=== PATIENT | female | born 1975 | race Caucasian/White ===

== ENCOUNTER 2019-05-07 13:26 | Outpatient (CLI) | payer OTHER, SELFPAY ==
--- NOTE | 2019-05-07 13:28 | MM_ITS ---
WS: [id number] SCREENING DIGITAL MAMMOGRAM WITH CAD HISTORY: SCREENING COMPARISON: None available. Bilateral CC and MLO views submitted. Computer aided detection analyzed. Breast composition: The breasts are heterogeneously dense, which may obscure small masses. Lobulated chowdhury shaped nodule measuring 17 x 12 mm in the upper medial RIGHT breast needs further evaluation. Ma rgins are smooth. LEFT breast is negative. Partial mammoplasty. RIGHT breast: Spot compression views (CC and MLO). True ML. Ultrasound to follow if abnormality persi sts. MM/[place] [id number] IMPRESSION: BI-RADS: 0-Incomplete: Need additional imaging evaluation FOLLOW UP: Need Additional Imaging
== END 2019-05-07 13:27 | disposition home or self-care (01) ==
LOC: RADSHAW 13:27
PROVIDERS: Family Provider Internal Medicine; PCP Internal Medicine; Visit Provider Internal Medicine
DX: Z12.31 Encounter for screening mammogram for malignant neoplasm of breast (principal)
CPT/HCPCS: 77067

== ENCOUNTER 2019-05-22 09:23 | Outpatient (CLI) | payer OTHER, SELFPAY ==
--- NOTE | 2019-05-22 | US_ITS ---
WS: [id number] Right breast ultrasound, 05/22/2019 Clinical Data: ABNORMAL MAMMOGRAM, RIGHT Comparison: Right breast mammogram, 05/22/2019 Findings: At the 1:00 position in the upper outer quadrant there is a small nodule measuring 0.51 x 0.47 x 0.68 cm. This has a well-defined border with mixed echotexture. No calcifications are within. This nodule is not well defined on the mammogram. At the 2:00 position there is a nodule which probably corresponds to the nodule noted on the mammogra m and measures 0.81 x 1.16 x 1.44 cm. Again it has a smooth well-defined border but there are numerou s echoes within. No calcifications are apparent. Impression: 1. Nodule in the upper outer quadrant of the right breast 1:00 position which was not well-defined on the mammogram and recommend biopsy. 2. Nodule in the upper outer quadrant of the right breast at the 2:00 position which was defined on t he mammogram and recommend biopsy. US/US breast RT limited* [id number] BIRADS: 4-Suspicious FOLLOW UP: Biopsy Recommended
--- NOTE | 2019-05-22 09:31 | MM_ITS ---
WS: [id number] Right breast diagnostic digital mammogram, 05/22/2019 Clinical Data: RT LUMP ABNORMAL MAMMO Comparison: 05/07/2019 Findings: There is a oval density in the upper inner quadrant of the right breast which measures 1.84 cm. It is located 5.7 cm from the areola. No spiculations are associated with this mass and there are no calci fications. No other masses are seen in this area. MM/[place] [id number] Impression: 1. 1.84 cm upper inner quadrant density of the right breast. 2. Right breast ultrasound will be performed. BIRADS: 4-Suspicious FOLLOW UP: Biopsy Recommended The CAD fish checker was used.
== END 2019-05-22 09:24 | disposition home or self-care (01) ==
LOC: RADSHAW 09:23
PROVIDERS: Family Provider Internal Medicine; PCP Internal Medicine; Visit Provider Internal Medicine
DX: N63.12 Unspecified lump in the right breast, upper inner quadrant (principal); R92.8 Other abnormal and inconclusive findings on diagnostic imaging of breast
CPT/HCPCS: 76642; 77065

== ENCOUNTER 2019-05-25 12:31 | Outpatient (CLI) | payer OTHER, SELFPAY ==
--- NOTE | 2019-05-25 12:37 | US_ITS ---
WS: [id number] ULTRASOUND-GUIDED RIGHT BREAST BIOPSY CLINICAL INFORMATION: RT BREAST DENSITIES X 2 COMPARISON: None. FINDINGS: The procedure including risks, benefits, and complications were discussed with the patient who agreed to proceed. Using sterile technique patient was prepped and draped in the usual sterile fashion. Aft er 1% lidocaine utilizing real-time ultrasound guidance 5 14-gauge cores were obtained of the right b reast lesion at the 2 o'clock position. Subsequently a titanium clip was placed in the biopsy cavity. No immediate complications. Next the 1:00 breast lesion was localized. After 1% lidocaine using ultrasound guidance 5 14-gauge co res were obtained of the right breast lesion at the 1:00 position. A titanium clip was placed in the biopsy cavity. Pathology demonstrates : Right breast 2:00 position, needle core biopsies: 1. Fibroadenoma 2. No malignancy identified Right breast 1:00 position needle core biopsies: 1. Fibroadenoma 2. No malignancy identified 1. Uncomplicated ultrasound-guided right breast biopsy at the 2:00 and 1:00 positions. 2. The pathology demonstrates changes of fibroadenoma at the 2:00 and 1:00 positions. No evidence of malignancy. US/[place] [id number] IMPRESSION: BI-RADS: 2-Benign FOLLOW UP: 1 Year Follow-up Recommend return to annual screening mammography.
== END 2019-05-25 12:32 | disposition home or self-care (01) ==
LOC: RAD 12:33
PROVIDERS: Family Provider Internal Medicine; PCP Internal Medicine; Visit Provider Internal Medicine
DX: D24.1 Benign neoplasm of right breast (principal); N63.12 Unspecified lump in the right breast, upper inner quadrant
CPT/HCPCS: 19083; 19084; 88305; J2001

== ENCOUNTER 2019-12-25 11:14 | Outpatient (CLI) | payer OTHER, SELFPAY ==
[2019-12-25 12:22] LABS: Basophils # 0.1 10^3/uL (0.0-0.1); Basophils % 0.8 %; Eosinophils # 0.2 10^3/uL (0.0-0.8); Eosinophils % 2.6 %; Hematocrit 39.5 % (37.0-47.0); Hemoglobin 12.3 g/dL (11.5-15.3); Lymphocytes # 2.3 10^3/uL (0.8-4.8); Lymphocytes % 31.1 %; Mean Corpuscular HGB Conc 31.1 g/dL (30.0-36.0); Mean Corpuscular Hemoglobin 28.7 pg (28.0-34.0); Mean Corpuscular Volume 92.1 fL (81-99); Mean Platelet Volume 9.9 fL (7.4-10.4); Monocytes # 0.6 10^3/uL (0.2-0.9); Monocytes % 8.5 %; Neutrophils # 4.23 10^3/uL (1.8-7.7); Neutrophils % 56.7 %; Nucleated Red Blood Cells % 0 %; Platelet Count 317 10^3/cmm (130-400); Red Blood Count 4.29 10^6/uL (4.1-5.3); Red Cell Distribution Width 13.4 % (12.1-15.1); White Blood Count 7.5 10^3/uL (4.0-10.0)
[2019-12-25 12:48] LABS: Alanine Aminotransferase 16 U/L (0-33); Albumin Level 4.2 g/dL (3.5-5.2); Alkaline Phosphatase 67 IU/L (35-105); Anion Gap 13.8 (5-19); Aspartate Amino Transferase 19 U/L (0-32); Blood Urea Nitrogen 9 mg/dL (6-20); Calcium 8.6 mg/dL (8.5-10.5); Carbon Dioxide 25 mmol/L (22-29); Chloride 102 mmol/L (98-107); Globulin 2.7 g/dL (1.3-4.6); Glomerular Filtration Rate 60.8 mL/min (90-130); Glucose 108 mg/dL (65-115); Osmolality Calculated 283 mOsm/kg (285-295); Potassium 3.8 mmol/L (3.5-5.1); Sodium 137 mmol/L (136-145); Thyroid Stimulating Hormone 0.48 uIU/mL (0.27-4.20); Total Bilirubin 0.3 mg/dL (0.15-1.2); Total Protein 6.9 g/dL (6.6-8.7)
== END 2019-12-25 11:15 | disposition home or self-care (01) ==
LOC: LAB 11:16
PROVIDERS: PCP Internal Medicine; Visit Provider Internal Medicine
DX: E03.9 Hypothyroidism, unspecified (principal)
CPT/HCPCS: 80053; 84443; 85025

== ENCOUNTER 2020-10-04 08:07 | Outpatient (CLI) | payer OTHER, SELFPAY ==
--- NOTE | 2020-10-04 08:10 | MM_ITS ---
WS: [id number] Bilateral screening digital mammogram, 10/04/2020 Clinical Data: SCREENING Comparison: 05/22/2019, 05/07/2019. Findings: The breast parenchymal pattern shows heterogeneous density. The density in the upper inner quadrant o f the right breast measures 1.6 x 1.3 cm and has an adjacent biopsy clip. No clustered calcifications are seen. There are no secondary signs of carcinoma. The left breast is normal. No spiculated masses or clustered calcifications are seen. There are no se condary signs of carcinoma. MM/[place] [id number] Impression: 1. No change in fibroadenoma of the upper inner quadrant of the right breast. 2. Recommend annual screening mammograms. BIRADS: 2-Benign FOLLOW UP: 1 Year Follow-up The CAD wash test checker was used.
== END 2020-10-04 08:08 | disposition home or self-care (01) ==
LOC: RADSHAW 08:09
PROVIDERS: PCP Internal Medicine; Visit Provider Internal Medicine
DX: Z12.31 Encounter for screening mammogram for malignant neoplasm of breast (principal)
CPT/HCPCS: 77067

== ENCOUNTER 2021-02-21 06:05 | Outpatient (CLI) | payer OTHER, SELFPAY ==
[2021-02-21 14:14] LABS: Adenovirus Not Detected (NOT DETECT); Chlamydia Pneumoniae Not Detected (NOT DETECT); Coronavirus 229E,HKU1,NL63,OC4 Not Detected (NOT DETECT); Human Metapneumovirus Not Detected (NOT DETECT); Human Rhinovirus/Enterovirus Not Detected (NOT DETECT); Influenza A Not Detected (NOT DETECT); Influenza A H1 Not Detected (NOT DETECT); Influenza A H1-2009 Not Detected (NOT DETECT); Influenza A H3 Not Detected (NOT DETECT); Influenza B Not Detected (NOT DETECT); Mycoplasma Pneumoniae Not Detected (NOT DETECT); Parainfluenza Virus Type 1 Not Detected (NOT DETECT); Parainfluenza Virus Type 2 Not Detected (NOT DETECT); Parainfluenza Virus Type 3 Not Detected (NOT DETECT); Parainfluenza Virus Type 4 Not Detected (NOT DETECT); Respiratory Syncytial Virus A Not Detected (NOT DETECT); Respiratory Syncytial Virus B Not Detected (NOT DETECT); SARS-COV-2 Detected (NOT DETECT)
== END 2021-02-21 06:06 | disposition home or self-care (01) ==
LOC: LAB 06:07
PROVIDERS: PCP Internal Medicine; Visit Provider Family Medicine
DX: Z20.822 Contact with and (suspected) exposure to COVID-19 (principal)
CPT/HCPCS: 87635

== ENCOUNTER 2021-02-22 08:21 | Outpatient (CLI) | payer OTHER, SELFPAY ==
[2021-02-22 08:38] VITALS: BP 128/74; PULSE 69; RESP 17; TEMP 36.8; O2SAT 98; BMI 29.8
[2021-02-22 09:16] VITALS: BP 119/74; PULSE 71; RESP 18; TEMP 36.6; O2SAT 98
[2021-02-22 10:16] VITALS: BP 133/76; PULSE 75; RESP 18; TEMP 36.6; O2SAT 99
== END 2021-02-22 08:22 | disposition home or self-care (01) ==
LOC: OPS 08:23
PROVIDERS: PCP Internal Medicine; Visit Provider Internal Medicine
DX: U07.1 COVID-19 (principal)
CPT/HCPCS: 96365

== ENCOUNTER 2021-06-19 11:19 | Outpatient (CLI) | payer OTHER, SELFPAY ==
[2021-06-19 14:29] LABS: Basophils # 0.1 10^3/uL (0.0-0.1); Basophils % 0.9 %; Eosinophils # 0.2 10^3/uL (0.0-0.8); Eosinophils % 2.9 %; Hematocrit 38.8 % (37.0-47.0); Hemoglobin 12.5 g/dL (11.5-15.3); Lymphocytes # 2.4 10^3/uL (0.8-4.8); Lymphocytes % 37.4 %; Mean Corpuscular HGB Conc 32.2 g/dL (30.0-36.0); Mean Corpuscular Hemoglobin 29.9 pg (28.0-34.0); Mean Corpuscular Volume 92.8 fl (81-99); Mean Platelet Volume 9.9 fL (7.4-10.4); Monocytes # 0.6 10^3/uL (0.2-0.9); Monocytes % 8.5 %; Neutrophils # 3.22 10^3/uL (1.8-7.7); Nucleated Red Blood Cells % 0 %; Platelet Count 284 10^3/cmm (130-400); Red Blood Count 4.18 10^6/uL (4.1-5.3); Red Cell Distribution Width 13.2 % (12.1-15.1); White Blood Count 6.5 10^3/uL (4.0-10.0)
[2021-06-19 15:45] LABS: Alanine Aminotransferase 13 U/L (0-33); Albumin Level 4.6 g/dL (3.5-5.2); Alkaline Phosphatase 64 IU/L (35-105); Anion Gap 16.4 (5-19); Aspartate Amino Transferase 23 U/L (0-32); Blood Urea Nitrogen 7 mg/dL (6-20); Calcium 9.5 mg/dL (8.5-10.5); Carbon Dioxide 25 mmol/L (22-29); Chloride 99 mmol/L (98-107); Chol HDL Ratio 2.46 mg/dL (0.0-4.40); Cholesterol 182 mg/dL (0-200); Globulin 2.8 g/dL (1.3-4.6); Glomerular Filtration Rate 78.3 mL/min (90-130); Glucose 80 mg/dL (65-115); HDL Cholesterol 74 mg/dL (60-100); LDL Cholesterol Calculated 90 mg/dL (50-129); LDL HDL Ratio 1.22 RATIO (0.00-3.22); Osmolality Calculated 281 mOsm/kg (285-295); Potassium 3.4 mmol/L (3.5-5.1); Sodium 137 mmol/L (136-145); Thyroid Stimulating Hormone 5.07 uIU/mL (0.27-4.20); Total Bilirubin 0.2 mg/dL (0.15-1.2); Total Protein 7.4 g/dL (6.6-8.7); Triglycerides 89 mg/dL (0-150)
[2021-06-19 18:17] LABS: 25 Hydroxy Vitamin D 66 ng/mL (30-100)
== END 2021-06-19 11:20 | disposition home or self-care (01) ==
LOC: LAB 11:24
PROVIDERS: PCP Internal Medicine; Visit Provider Internal Medicine
DX: E03.9 Hypothyroidism, unspecified (principal); Z79.899 Other long term (current) drug therapy
CPT/HCPCS: 80053; 80061; 82306; 84439; 84443; 85025

== ENCOUNTER 2021-08-29 13:15 | Outpatient (CLI) | payer OTHER, SELFPAY ==
--- NOTE | 2021-08-29 13:34 | XR_ITS ---
WS: [id number] XR cervical spine 3V* [id number] REASON FOR EXAM: WEAKNESS OF RIGHT ARM FINDINGS: Normal lordosis of the cervical spine. No significant compression deformity or focal lesion of the cervical vertebrae. Mild narrowing of the C5-C6 interspace with small anterior osteophytes. No significant spondylolisthesis. Normal facet joint alignment. XR/XR cervical spine 3V* [id number] IMPRESSION: Degenerative spondylosis at C5-C6. This abnormality was not present on the prev ious examination of 03/11/2008.
== END 2021-08-29 13:16 | disposition home or self-care (01) ==
PROVIDERS: PCP Internal Medicine; Visit Provider Nurse Practitioner Family
DX: R53.1 Weakness (principal); M47.812 Spondylosis without myelopathy or radiculopathy, cervical region
CPT/HCPCS: 72040

== ENCOUNTER → 2021-11-28 14:14 | Outpatient (BNVA) | payer OTHER, SELFPAY | PROVIDERS: PCP Internal Medicine; Visit Provider Student in an Organized Health Care Education/Training Program | DX: M77.11 Lateral epicondylitis, right elbow; G56.01 Carpal tunnel syndrome, right upper limb | CPT/HCPCS: 73080 ==

== ENCOUNTER 2021-12-08 12:27 | Outpatient (CLI) | payer OTHER, SELFPAY ==
--- NOTE | 2021-12-08 12:52 | MR_ITS ---
WS: [id number] MRI CERVICAL SPINE NONCONTRAST HISTORY: Cervical pain radiating down both shoulders with numbness RIGHT arm. COMPARISON: None available. Technique: Multiplanar, multisequence noncontrast imaging of the cervical spine. Very minimal retrolisthesis of C5. Otherwise alignment is normal. Mild disc desiccation and narrowing at C5-6. Signal within the cervical cord is normal. Visualized posterior fossa is unremarkable. Craniocervical junction, C1 and C2 relationship, odontoid process and soft tissues are normal. C2-C3: Normal. C3-C4: Normal. C4-C5: Mild osteophytic ridging. No stenosis. C5-C6: Moderate central to LEFT paracentral disc protrusion. There is posterior displacement of the e xiting nerve roots on the LEFT. C6-C7: Very mild osteophytic ridging. C7-T1: Normal. Paraspinal soft tissue are normal. MR/MR cervical spin wo con* [id number] IMPRESSION: 1. No high-grade central stenosis. 2. Moderate central to LEFT paracentral disc protrusion at C5-6 with moderate narrowing of the LEFT foramen.
== END 2021-12-08 12:28 | disposition home or self-care (01) ==
PROVIDERS: PCP Internal Medicine; Visit Provider Internal Medicine
DX: M50.30 Other cervical disc degeneration, unspecified cervical region (principal); M50.222 Other cervical disc displacement at C5-C6 level
CPT/HCPCS: 72141

== ENCOUNTER 2021-12-13 14:31 | Outpatient (CLI) | payer OTHER, SELFPAY ==
--- NOTE | 2021-12-13 14:39 | MM_ITS ---
WS: [id number] BILATERAL 3D TOMOSYNTHESIS DIGITAL SCREENING MAMMOGRAPHY WITH CAD CLINICAL INFORMATION: YEARLY SCREENING HISTORY: Screening mammogram. No current complaints. COMPARISON: October 04, 2020 TECHNIQUE: Bilateral CC and MLO views. FINDINGS: The breasts are composed of heterogeneous fibroglandular density tissue, which can limit the detectio n of small underlying mass lesions. No suspicious mass, asymmetry, calcifications, or architectural d istortion. No evidence of malignancy. Benign calcifications RIGHT breast. RIGHT breast biopsy markers with stable ovoid nodules. MM/[place] [id number] IMPRESSION: BI-RADS: 2-Benign FOLLOW UP: 1 Year Follow-up Recommend return to annual screening mammography.
== END 2021-12-13 14:32 | disposition home or self-care (01) ==
LOC: RAD 14:32
PROVIDERS: PCP Internal Medicine; Visit Provider Internal Medicine
DX: Z12.31 Encounter for screening mammogram for malignant neoplasm of breast (principal)
CPT/HCPCS: 77063; 77067

== ENCOUNTER 2022-04-16 14:53 | Outpatient (CLI) | payer OTHER, SELFPAY ==
--- NOTE | 2022-04-16 15:15 | MR_ITS ---
WS: [id number] EXAMINATION: MR elbow RT wo con* [id number] ORDER DATE: 04/16/2022 2:59 P HISTORY: G56.11 - Other lesions of median nerve, right upper limb CONTRAST: None. TECHNIQUE: Axial T1, axial T2 fat sat, coronal T1, coronal proton density fat sat, coronal STIR, sagi ttal proton density fat sat, and axial fat sat 3D performed. After contrast, axial T1 fat sat, coron al T1 fat sat, and sagittal T1 fat sat were performed. FINDINGS: Small amount of patchy subchondral edema involving the articular undersurface of the capitellum at th e radial head junction. Small subchondral lesion measures 5.3 mm and extends to the articular surface . Normal trochlea. Normal bone marrow signal in the radius and ulna. Small amount of fluid and edema along the common extensor tendon proximally. Normal common flexor tendon. Normal olecranon bursa. Median nerve course appears normal. Tiny joint e ffusion. Distal humeral shaft appears normal. MR/MR elbow RT wo con* [id number] IMPRESSION: 1. Small 5.3 mm osteochondral lesion involving the distal undersurface of the capitellum extending to the articular surface. Recommend correlation with prior trauma. 2. Radial head and neck are normal in appearance. 3. Small amount of edema compatible with tendinopathy involving the common ext ensor tendons 4. Normal bone marrow signal in the olecranon. No olecranon bursitis. 5. Median nerve course appears normal. 6. No other suspicious findings.
== END 2022-04-16 14:54 | disposition home or self-care (01) ==
LOC: RAD 14:54
PROVIDERS: PCP Internal Medicine; Visit Provider Specialist
DX: G56.11 Other lesions of median nerve, right upper limb (principal); M25.521 Pain in right elbow; R60.0 Localized edema
CPT/HCPCS: 73221

== ENCOUNTER 2022-05-16 05:52 | Day surgery (SDC) | payer OTHER, SELFPAY ==
[2022-05-15 08:45] VITALS: BMI 31.6
[2022-05-16 06:10] VITALS: BP 131/64; PULSE 91; RESP 17; TEMP 36.7; O2SAT 98
[2022-05-16] MEDS: sodium chloride 0.9% 1,000 ML 30 ML IV (06:27)
[2022-05-16 06:30] LABS: OR HCG Qualitative Urine Negative (Negative)
[2022-05-16] MEDS: ketorolac 30 mg/mL INJ IVP (06:37)
[2022-05-16] MEDS: acetaminophen 1,000 MG/100 ML PIGGYBACK 400 MG IV (06:37)
--- NOTE | 2022-05-16 06:46 | W.PM.OPSUD ---
Surgery/Procedure H&P Update DATE OF PROCEDURE: May 16, 2022 DATE H&P PERFORMED: 05/03/22 CHANGES TO PREVIOUS DOCUMENTATION: None PREOP DIAGNOSIS: Right carpal tunnel syndrome PRIMARY INDICATION FOR PROCEDURE: Right carpal tunnel syndrome PLANNED PROCEDURE: Operation Date: 05/16/22 07:00 Proposed Procedures p Right carpal tunnel release 33648,G56.01, M77.11(Right) - Chad Chung DO
[2022-05-16] MEDS: ceFAZolin 2,000 MG in sodium chloride 0.9% (plus) 50 ML 100 MG IV (07:04)
--- NOTE | 2022-05-16 07:12 | ANES.PREANE2 ---
Pre-Anesthetic Assessment Height/Weight: Height 1.68 m Weight 88.904 kg Temp Pulse Resp BP Pulse Ox O2 Del Method 98.0 F 91 17 131/64 98 05/16/22 06:10 05/16/22 06:10 05/16/22 06:10 05/16/22 06:10 05/16/22 06:10 05/16/22 06:12 Preop Diagnosis: Right carpal tunnel syndrome Operation Date: 05/16/22 07:00 Proposed Procedures p Right carpal tunnel release 01619,G56.01, M77.11(Right) - Cahd Chung DO Familial anesthetic complications: none Was Beta Donnell taken within 24 hours: N/A Was Clonidine taken within 24 hours: N/A Last intake: Intake Last Liquid Date 05/15/22 Last Liquid Time 20:00 Last Solid Date 05/15/22 Last Solid Time 18:00 Social No alcohol and No tobacco Exam alert, oriented x 3, clear to auscultation bilaterally and regular rate & rhythm Airway Submandibular: within normal limits Cervical ROM: within normal limits Mallampati: Class II Dentition: full GI Gastroesophageal Reflux Disease Metabolic Thyroid Disease Anesthetic Plan ASA status: 2 Anesthesia: MAC Medications/Allergies Home Medications Medication Instructions Recorded Confirmed Last Taken Type citalopram 20 mg tablet (Celexa) 20 mg PO DAILY 03/22/20 05/16/22 05/15/22 20:00 History levothyroxine 125 mcg tablet 137 mcg PO DAILY 03/22/20 05/16/22 05/16/22 04:30 History (Synthroid) montelukast 10 mg tablet 10 mg PO DAILY 03/22/20 05/16/22 05/15/22 20:00 History (Singulair) omeprazole 20 mg capsule,delayed 20 mg PO DAILY 03/22/20 05/16/22 05/15/22 20:00 History release gabapentin 100 mg capsule 100 mg PO TID 03/26/22 05/16/22 05/15/22 20:00 History cholecalciferol (vitamin D3) 125 125 mcg PO DAILY 05/15/22 05/16/22 05/15/22 20:00 History mcg (5,000 unit) tablet (Vitamin D3) magnesium oxide 400 mg PO DAILY 05/15/22 05/16/22 05/15/22 20:00 History eclqroqhhdky-Hs-thhr-minerals 1 pkg PO DAILY 05/15/22 05/16/22 05/15/22 20:00 History Allergies Allergy/AdvReac Type Severity Reaction Status Date / Time codeine Allergy itch Verified 05/16/22 06:08 Sulfa (Sulfonamide Allergy throat Verified 05/16/22 06:08 Antibiotics) swells Current Medications Generic Name Dose Route Start Last Admin Trade Name Freq PRN Reason Stop Dose Admin Sodium Chloride 1,000 mls @ 30 mls/hr 05/16/22 06:00 05/16/22 06:27 Sodium Chloride 0.9% IV 05/17/22 05:59 30 mls/hr .Q24H MARY LOU Administration PFSH Anesthesia Medical History Depression GERD (gastroesophageal reflux disease) Hypothyroid Right carpal tunnel syndrome Right lateral epicondylitis Surgical History H/O breast biopsy History of ankle surgery Hx of breast reduction, elective Family History Other Depression Diabetes Hypothyroid Social History Smoking and tobacco status: never smoked Alcohol intake: current Alcohol intake frequency: holidays/special occasions only Female Reproductive History Date of last menstrual period: 05/01/22 Data Anesthesia Cardiac Studies: No Data to Display
[2022-05-16] MEDS: lidocaine-epi 2% 20 mL INJ 5 ML INJECTION (07:30)
[2022-05-16 07:52] VITALS: BP 84/58; PULSE 78; RESP 14; TEMP 36.1; O2SAT 98
[2022-05-16 07:55] VITALS: BP 152/94; PULSE 83; RESP 15; O2SAT 98
--- NOTE | 2022-05-16 07:59 | P.OP_ITS ---
Operative Report Date of procedure: May 16, 2022 Pre-op diagnosis: Preop Diagnosis Right carpal tunnel syndrome Post-op diagnosis: Same Procedure done: Right carpal tunnel release Surgeon: Chad Chung DO Estimated blood loss: 3 mL 11 IV fluids: 400 mL Complications: None Condition: stable Disposition: same day Brief History: Patient's been seen and worked up in the outpatient setting and findings consistent with right carpal tunnel syndrome she has had some a's typical type of symptomatology. However we did done a trial of a diagnostic and therapeutic cortisone injection into the carpal tunnel this gave her complete relief in symptoms of 3 to 4 weeks. At this point time she is continue to have pain and numbness in the median nerve distribution feel as though in her best interest through shared decision making we agreed to proceed with right carpal tunnel release surgery as this is the most tangible thing that we have had for her of providing pain relief patient understands and agrees with current plan. All questions answered. She would like to proceed with right carpal tunnel release surgery she understands the risk benefits complication alternatives surgical nonsurgical treatment options. Understanding risk of surgery she states to proceed. Procedure: Right Carpal Tunnel Release Procedure: Patient seen and evaluated in the preoperative holding area.? Consent was reviewed and signed with patient.? Correct extremity was marked.? Patient was seen evaluated by the anesthesia department once cleared for surgery was brought back to the operative suite.? Placement was placed onto the OR table in supine position all bony prominences were well-padded patient properly secured to the bed.? right upper extremity was then placed onto an armboard.? A nonsterile tourniquet was applied to the right upper arm.? Patient underwent anesthesia per the anesthesia department. Patient's right upper extremity was then prepped and draped in standard orthopedic fashion.? Final timeout performed.? Patient received appropriate preoperative antibiotics. Under sterile aseptic technique patient received local anesthesia over the preplanned carpal tunnel incision site.? Esmarch was used to exsanguinate the right upper extremity and tourniquet was insufflated to 250 mmHg. A standard mini open carpal tunnel incision was made.? Starting distally at Ron's cardinal line in line with the fourth ray extending proximally distal to the wrist crease centered over the carpal tunnel.? Sharp scalpel incision was made through skin and subcutaneous tissue.? Self-retaining retractor was placed and the palmar fascia was identified.? This was then split longitudinally and direct visualization of the transverse carpal ligament was then made.? I then utilizing scalpel feathered through the transverse carpal ligament until I entered the floor of the transverse carpal tunnel ligament into the carpal tunnel.? Next I switched to dissection scissors and completed my release of the transverse carpal ligament distally with care to protect the recurrent motor branch.? I completely released into the palmar fat and until no entrapment was noted distally.? Care was made to protect the superficial palmar arch during my distal dissection.? Next I then placed a Montezuma underneath the transverse carpal tunnel ligament to protect the contents of the carpal tunnel and subsequently utilizing dissection scissors under loupe magnification completely released the transverse carpal ligament proximally into the median antebrachial fascia.? Care was made to protect the palmar cutaneous branch by keeping my scissors curved ulnarly.? Once completely released, I then placed my Montezuma and had appropriate decompression of the carpal tunnel proximally as well as distally.? I then inspected the contents of the carpal tunnel which showed an hourglass shape of the median nerve showing its compression.? No masses were noted.? Tendons appeared healthy.? Wound was then thoroughly irrigated.? Tourniquet deflated.? Hemostasis satisfactory with bipolar electrocautery.? I then closed the incision with interrupted nylon stitches.? Xeroform 4 x 4's and a bulky soft dressing was applied to the right upper extremity.? Patient was then awakened from anesthesia and taken to PACU in stable condition.? Patient tolerated procedure without complications. Disposition: Patient taken to PACU in stable condition recovering well.? Dressing clean dry and intact.? Patient will receive appropriate discharge instructions as well as pain medication postoperatively.? Patient to follow-up with me in the office in 2 weeks.? They understand they may be weightbearing as tolerated to the right hand.? Patient should keep incision clean dry and intact.? Patient understands if any questions or concerns he may contact the office.
--- NOTE | 2022-05-16 07:59 | PM.OP2 ---
Brief Operative Note Date of procedure: 05/16/22 Pre-op diagnosis: Right carpal tunnel syndrome Post-op diagnosis: same Procedure Done: Right carpal tunnel release Surgeon: Chad Chung Estimated blood loss (mL): 3 Complications: None Post-op Plan: Patient taken PACU in stable condition recovering well she will receive appropriate discharge as well as pain medication postoperatively. She will follow-up with me in the office in 2 weeks. Condition: stable Disposition: same day Coding Level of Care Code Acute Code for Shawna Gruber
--- NOTE | 2022-05-16 07:59 | PM.PACU ---
PACU note Narrative: Patient seen evaluated in the PACU. Dressing on in place clean dry intact brisk capillary refill less than 2 seconds. Patient is able to wiggle fingers. Decreased sensation secondary to local anesthesia. Exam: awake Disposition: discharged
[2022-05-16 08:03] VITALS: BP 114/49; PULSE 81; RESP 14; TEMP 36.1; O2SAT 98
[2022-05-16 08:10] VITALS: BP 135/101; PULSE 78; RESP 16; TEMP 36.1; O2SAT 99
[2022-05-16 08:35] VITALS: BP 128/76; PULSE 81; RESP 17; TEMP 36.2; O2SAT 98
--- NOTE | 2022-05-16 15:33 | ANE.PACU2 ---
Inpatient post-anesthesia follow up: Airway intact: Yes Vital signs: Temperature 97.1 F Pulse Rate 81 Respiratory Rate 17 Blood Pressure 128/76 Pulse Oximetry 98 Oxygen Delivery Me thod Room Air Oxygen Flow Rate Fraction of Inspir ed Oxygen Hydration adequate: Yes Nausea and vomiting: No Pain level: 2 Mental status: Baseline
== END 2022-05-16 08:41 | disposition home or self-care (01) ==
PROVIDERS: Anesthesiology; PCP Internal Medicine; Visit Provider Student in an Organized Health Care Education/Training Program
PROC: (CPT 64721; principal; 2022-05-16 07:00)
DX: G56.01 Carpal tunnel syndrome, right upper limb (principal); K21.9 Gastro-esophageal reflux disease without esophagitis; E03.9 Hypothyroidism, unspecified; Z88.2 Allergy status to sulfonamides; Z88.5 Allergy status to narcotic agent
CPT/HCPCS: 64721; 81025; 84703; J0131; J0690; J1885; J2250; J2704; J2795; J3010; J7030

== ENCOUNTER 2022-06-09 13:17 | Emergency (ER) | payer OTHER, SELFPAY ==
[2022-06-09 13:23] VITALS: BP 162/91; PULSE 102; RESP 16; TEMP 36.8; O2SAT 100
--- NOTE | 2022-06-09 13:24 | XRR_ITS ---
PROCEDURE INFORMATION: Exam: XR Abdomen Exam date and time: 06/09/2022 1:31 PM Age: 46 years old Clinical indication: Abdominal pain; Generalized; Prior surgery; Surgery date: 6+ months; Additional info: Abd pain TECHNIQUE: Imaging protocol: Radiologic exam of the abdomen. Views: Frontal supine view of the abdomen. 1 View. COMPARISON: No relevant prior studies available. FINDINGS: Gastrointestinal tract: Normal. No bowel dilation. Bones/joints: Unremarkable. XR/XR KUB portable [id number] IMPRESSION: No acute findings.
--- NOTE | 2022-06-09 13:43 | CTR_ITS ---
PROCEDURE INFORMATION: Exam: CT Abdomen And Pelvis Without Contrast Exam date and time: 06/09/2022 2:43 PM Age: 46 years old Clinical indication: Abdominal pain; Localized; Lower; Prior surgery; Surgery date: 6+ months; Surgery type: Part of cervix removed; Patient HX: PT C/O low abd pain with recent constipation x 5 days. PT reports she took mag citrate and today has watery diarrhea. TECHNIQUE: Imaging protocol: Computed tomography of the abdomen and pelvis without contrast. Radiation optimization: All CT scans at this facility use at least one of these dose optimization techniques: automated exposure control; mA and/or kV adjustment per patient size (includes targeted exams where dose is matched to clinical indication); or iterative reconstruction. REPORTING DATA: Count of CT and Cardiac NM exams in prior 12 months: This patient has received 0 known CTs and 0 known cardiac nuclear medicine studies in the 12 months prior to the current study. COMPARISON: CR (ABDOMEN, ) 06/09/2022 1:31 PM RADIATION DOSE METRICS: Total DLP (mGy-cm): 754.23 FINDINGS: Liver: Hepatomegaly the liver span is 18 cm. No focal hepatic lesions are seen. The spleen measures 12 cm no focal lesions are seen Gallbladder and bile ducts: Normal. No calcified stones. No ductal dilation. Pancreas: Normal. No ductal dilation. Spleen: Normal. No splenomegaly. Adrenal glands: Normal. No mass. Kidneys and ureters: Normal. No hydronephrosis. Stomach and bowel: Multiple fluid filled colonic loops seen fluid is seen in the ascending colon and the descending colon sigmoid colon and rectum. No obstruction. No mucosal thickening. Appendix: No evidence of appendicitis. Intraperitoneal space: Unremarkable. No free air. No significant fluid collection. Vasculature: Unremarkable. No abdominal aortic aneurysm. Lymph nodes: Unremarkable. No enlarged lymph nodes. Urinary bladder: Unremarkable as visualized. Reproductive: Unremarkable as visualized. Bones/joints: Lumbar spine osteoarthritis is seen. Narrowing and vacuum phenomena is seen L5-S1 No acute fracture. Soft tissues: Unremarkable. CT/CT abdomen pelvis wo con [id number] IMPRESSION: 1. Multiple fluid filled colonic loops without bowel obstruction 2. Osteoarthritis lumbar spine 3. Hepatomegaly without focal hepatic lesions. 4. Otherwise negative examination
--- NOTE | 2022-06-09 13:44 | ED_ITS ---
HPI - Abdominal Pain General: Chief Complaint: Abdominal Pain Stated Complaint: abdominal pain Time Seen by Provider: 06/09/22 13:23 Source: patient Mode of arrival: ambulatory History of Present Illness: 46-year-old female presents emergency room complaining of constipation abdominal pain and cramping. She had recently had a carpal tunnel surgery postop she taken a fair amount of narcotic pain medications and felt constipated. She has taken some mag citrate to relieve the constipation she had a large amounts of liquid stool results but never passed any formed stool. She has a lot of abdominal discomfort and cramping generally feeling weak she has had persistent nausea and vomiting associated this as well. She recently had a UTI but had completed a course of medications for this. She has some reflux and is on omeprazole. She denies any medic easy melena hematemesis or coffee-ground emesis currently does not have any dysuria urgency or frequency or hematuria. She indicates more of her pain is in the suprapubic region. Rather than improving her symptoms magnesium citrate seems to have exacerbated things. MD elicited complaint: abdominal pain Onset (ago): day(s) Pain Consistency: intermittent Location: Suprapubic Quality: cramping Exacerbating factors: nothing Relieving factors: nothing Associated Symptoms: Reports change in bowel habits, change in stool character, heartburn and poor appetite; Denies anorexia, belching, bloating, chills, coffee ground emesis, constipation, GI cramping, diarrhea, dyspepsia, dysuria, excessive flatus, fever(s), hematochezia, hematuria, hematemesis, fecal incontinence, loose stools, melena, nausea, syncope and vomiting Review of Systems Const: Denies: fever(s) or chills Card: Denies: syncope GI: Reports: abdominal pain, heartburn, change in bowel habits and change in stool character; Denies: nausea, vomiting, hematemesis, coffee ground emesis, diarrhea, constipation, bloating, GI cramping, belching, excessive flatus, fecal incontinence, hematochezia or melena : Denies: dysuria, urinary frequency, urinary urgency or hematuria [facility] ED PFSH: Medical History Depression GERD (gastroesophageal reflux disease) Hypothyroid Right carpal tunnel syndrome Right lateral epicondylitis Surgical History H/O breast biopsy History of ankle surgery Hx of breast reduction, elective Family History Other Depression Diabetes Hypothyroid Social History Smoking and tobacco status: never smoked Alcohol intake: current Alcohol intake frequency: holidays/special occasions only Physical Exam Const: GENERAL APPEARANCE: cooperative and comfortable ORIENTATION/CONSCIOUSNESS: Yes awake, Yes oriented to person, Yes oriented to place and Yes oriented to time HENMT: COMMON NORMALS: normocephalic, atraumatic and hearing grossly normal bilaterally HEAD & SCALP: normocephalic and atraumatic Resp: COMMON NORMALS: normal respiratory effort, No retractions, No use of accessory muscles and clear to auscultation bilaterally AUSCULTATION: clear to auscultation bilaterally Cardio: COMMON NORMALS: regular rate, regular rhythm and No murmurs present (Cardio) RATE: regular rate RHYTHM: regular rhythm GI: COMMON NORMALS: Soft to palpation and No hepatosplenomegaly present AUSCULTATION: Yes normoactive bowel sounds PALPATION: Yes Soft to palpation, No Tenderness to palpation present (GI), No Guarding due to palpation present (GI) and Yes No hepatosplenomegaly present Extremity: COMMON NORMALS: normal to inspection, capillary refill normal, no clubbing, cyanosis or edema, no calf tenderness and no pedal edema Neuro: SENSORIUM/ORIENTATION: Yes oriented to person, Yes oriented to place and Yes oriented to time Skin: COMMON NORMALS: no rashes or lesions noted GENERAL SKIN EXAM: no rashes or lesions noted Course Vital Signs: Vital signs: Vital Signs Temperature 98.3 F 06/09/22 13:23 Pulse Rate 84 06/09/22 16:59 Respiratory Rate 14 06/09/22 16:59 Blood Pressure 122/83 06/09/22 16:59 Pulse Oximetry 98 06/09/22 16:59 Oxygen Delivery Me thod 06/09/22 16:59 MDM - Abdominal Pain Medical Decision Making CT of the abdomen done there is no retained stool no significant abnormalities of the bowel or anywhere else. Suspect she may be having a pyelonephritis clinically. Recommend she start her oral antibiotics continue pain medications and antiemetics as needed. Improved with IV fluids Medical Records I reviewed the patient's medical records. Lab Data I reviewed the patient's lab results. 06/09/22 13:42 06/09/22 13:42 Labs/Radiology: Radiology Impressions KUB X-Ray 06/09/22 13:24 IMPRESSION: No acute findings. Abdomen/Pelvis CT 06/09/22 13:43 IMPRESSION: 1. Multiple fluid filled colonic loops without bowel obstruction 2. Osteoarthritis lumbar spine 3. Hepatomegaly without focal hepatic lesions. 4. Otherwise negative examination Laboratory Results WBC 10.4 10^3/uL (4.0-10.0) H 06/09/22 13:42 RBC 4.50 10^6/uL (4.1-5.3) 06/09/22 13:42 Hgb 13.5 g/dL (11.5-15.3) 06/09/22 13:42 Hct 40.7 % (37.0-47.0) 06/09/22 13:42 MCV 90.4 fl (81-99) 06/09/22 13:42 MCH 30.0 pg (28.0-34.0) 06/09/22 13:42 MCHC 33.2 g/dL (30.0-36.0) 06/09/22 13:42 RDW 13.2 % (12.1-15.1) 06/09/22 13:42 Plt Count 270 10^3/cmm (130-400) 06/09/22 13:42 MPV 9.4 fL (7.4-10.4) 06/09/22 13:42 Neut % (Auto) 74.5 % 06/09/22 13:42 Lymph % (Auto) 15.4 % 06/09/22 13:42 [place] % (Auto) 9.0 % 06/09/22 13:42 Eos % (Auto) 0.4 % 06/09/22 13:42 Baso % (Auto) 0.4 % 06/09/22 13:42 Neut # (Auto) 7.75 10^3/uL (1.8-7.7) H 06/09/22 13:42 Lymph # (Auto) 1.6 10^3/uL (0.8-4.8) 06/09/22 13:42 [place] # (Auto) 0.9 10^3/uL (0.2-0.9) 06/09/22 13:42 Eos # (Auto) 0.0 10^3/uL (0.0-0.8) 06/09/22 13:42 Baso # (Auto) 0.0 10^3/uL (0.0-0.1) 06/09/22 13:42 Nucleated RBC % (auto) 0 % 06/09/22 13:42 Nucleated RBCs # 0.0 /100WBC 06/09/22 13:42 Sodium 140 mmol/L (136-145) 06/09/22 13:42 Potassium 3.8 mmol/L (3.5-5.1) 06/09/22 13:42 Chloride 101 mmol/L (98-107) 06/09/22 13:42 Carbon Dioxide 27 mmol/L (22-29) 06/09/22 13:42 Anion Gap 15.8 (5-19) 06/09/22 13:42 BUN 6 mg/dL (6-20) 06/09/22 13:42 Creatinine 0.7 mg/dL (0.5-0.9) 06/09/22 13:42 GFR Calculation 90.9 mL/min (90-130) 06/09/22 13:42 Glucose 88 mg/dL (65-115) 06/09/22 13:42 Calculated Osmolality 287 mOsm/kg (285-295) 06/09/22 13:42 Calcium 8.8 mg/dL (8.5-10.5) 06/09/22 13:42 Total Bilirubin 0.6 mg/dL (0.15-1.2) 06/09/22 13:42 AST 22 U/L (0-32) 06/09/22 13:42 ALT 16 U/L (0-33) 06/09/22 13:42 Alkaline Phosphatase 64 U/L (35-105) 06/09/22 13:42 Total Protein 7.7 g/dL (6.6-8.7) 06/09/22 13:42 Albumin 4.7 g/dL (3.5-5.2) 06/09/22 13:42 Globulin 3.0 g/dL (1.3-4.6) 06/09/22 13:42 Lipase 19 U/L (13-60) 06/09/22 13:42 HCG, Qual Negative (Negative) 06/09/22 13:42 Urine Color Yellow (Yellow) 06/09/22 14:23 Urine Appearance Clear (CLEAR) 06/09/22 14:23 Urine pH 7 (5-7) 06/09/22 14:23 Ur Specific [place] 1.010 (1.005-1.030) 06/09/22 14:23 Urine Protein 1+ (Negative) H 06/09/22 14:23 Urine Glucose (UA) Norm (Normal) 06/09/22 14:23 Urine Ketones 3+ (Negative) H 06/09/22 14:23 Urine Blood 2+ (Negative) H 06/09/22 14:23 Urine Nitrate Negative (Negative) 06/09/22 14:23 Urine Bilirubin Neg (Negative) 06/09/22 14:23 Urine Urobilinogen Norm mg/dL (Negative) 06/09/22 14:23 Ur Leukocyte Esterase Trace (Negative) H 06/09/22 14:23 Urine RBC 10-15 /hpf (0-2) H 06/09/22 14:23 Urine WBC 5-10 /hpf (0-5) H 06/09/22 14:23 Ur Squamous Epith Cells 0-4 /hpf (0-5) H 06/09/22 14:23 Amorphous Sediment Not Reportable 06/09/22 14:23 Urine Bacteria Trace /hpf (NONE) 06/09/22 14:23 Discharge Plan Discharge Patient Disposition: Home Clinical Impression: Pyelonephritis Condition: Stable Prescriptions: New hydrocodone-acetaminophen 5-325 mg tablet 1 tab PO Q6H PRN (Reason: pain) Qty: 20 0RF promethazine 25 mg tablet 25 mg PO Q6H PRN (Reason: nausea and vomiting) Qty: 20 0RF No Action levothyroxine [Synthroid] 125 mcg tablet 137 mcg PO DAILY montelukast [Singulair] 10 mg tablet 10 mg PO DAILY citalopram [Celexa] 20 mg tablet 20 mg PO DAILY omeprazole 20 mg capsule,delayed release(DR/EC) 20 mg PO DAILY gabapentin 100 mg capsule 100 mg PO TID hydrocodone-acetaminophen 5-325 mg tablet 1 tab PO Q6H PRN (Reason: pain postop) 7 Days Qty: 28 0RF [id number] Combo Pack 1 pkg PO DAILY cholecalciferol (vitamin D3) [Vitamin D3] 125 mcg (5,000 unit) Tablet 125 mcg PO DAILY magnesium oxide 400 mg magnesium Capsule 400 mg PO DAILY Discharge Orders: Discharge ED (Routine); Ordered 06/09/22 Ordered By: Kelvin Rojas Referrals: Jessica Lopez MD [Primary Care Provider] - Patient Instructions: Opioid Safety, Pain Management Activity Restrictions/Additional Instructions: You are seen today for abdominal pain your CT did not show any significant abnormalities clinically you appear to have a pyelonephritis. I think the diarrhea was caused by the use of the magnesium citrate there is no significant constipation on your scan. Blood cultures were done you were given a second dose of Rocephin. Recommend that you start the oral ciprofloxacin tomorrow and complete a full week's course. Additionally you can use hydrocodone or promethazine for pain. Coding Level of Care Code ED Sales Engineer Account Manager for Shawna Gruber
[2022-06-09 13:52] LABS: Basophils % 0.4 %; Eosinophils % 0.4 %; Hematocrit 40.7 % (37.0-47.0); Hemoglobin 13.5 g/dL (11.5-15.3); Lymphocytes # 1.6 10^3/uL (0.8-4.8); Lymphocytes % 15.4 %; Mean Corpuscular HGB Conc 33.2 g/dL (30.0-36.0); Mean Corpuscular Volume 90.4 fl (81-99); Mean Platelet Volume 9.4 fL (7.4-10.4); Monocytes # 0.9 10^3/uL (0.2-0.9); Neutrophils # 7.75 10^3/uL (1.8-7.7); Neutrophils % 74.5 %; Nucleated Red Blood Cells % 0 %; Platelet Count 270 10^3/cmm (130-400); Red Cell Distribution Width 13.2 % (12.1-15.1); White Blood Count 10.4 10^3/uL (4.0-10.0)
[2022-06-09 13:59] VITALS: BP 105/68; PULSE 100; RESP 16; O2SAT 100
[2022-06-09] MEDS: sodium chloride 0.9% 1,000 ML 999 ML IV ×2 (14:00→15:09)
[2022-06-09 14:01] VITALS: RESP 14
[2022-06-09] MEDS: morphine 4 mg/mL SDV 1 mL IVP ×2 (14:01→14:31)
[2022-06-09 14:05] LABS: Alanine Aminotransferase 16 U/L (0-33); Albumin Level 4.7 g/dL (3.5-5.2); Alkaline Phosphatase 64 U/L (35-105); Anion Gap 15.8 (5-19); Aspartate Amino Transferase 22 U/L (0-32); Blood Urea Nitrogen 6 mg/dL (6-20); Calcium 8.8 mg/dL (8.5-10.5); Carbon Dioxide 27 mmol/L (22-29); Chloride 101 mmol/L (98-107); Glomerular Filtration Rate 90.9 mL/min (90-130); Glucose 88 mg/dL (65-115); Lipase 19 U/L (13-60); Osmolality Calculated 287 mOsm/kg (285-295); Potassium 3.8 mmol/L (3.5-5.1); Sodium 140 mmol/L (136-145); Total Bilirubin 0.6 mg/dL (0.15-1.2); Total Protein 7.7 g/dL (6.6-8.7)
[2022-06-09 14:11] LABS: HCG, Serum Qual Negative (Negative)
--- NOTE | 2022-06-09 14:47 | PC.NURSE ---
Returned from CT scan, to bathroom with diarrhea. This is pt's 3rd episode of diarrhea since arrival to ED
[2022-06-09 15:01] LABS: Add Urine Microscopic? YES; Bilirubin Urine Neg (Negative); Blood Urine 2+ (Negative); Glucose Urine UA Norm (Normal); Ketones Urine 3+ (Negative); Leukocyte Esterase Urine Trace (Negative); Nitrate Urine Negative (Negative); Protein Urine 1+ (Negative); Urine Appearance Clear (CLEAR); Urine Color Yellow (Yellow); Urobilinogen Urine Norm (Negative); pH Urine 7 (5-7)
[2022-06-09 15:04] LABS: Bacteria Urine TRACE /hpf; Squamous Epithelial Cell Urine 0-4 /hpf (0-5)
[2022-06-09 15:05] LABS: Add Urine Culture? Yes
[2022-06-09 15:18] VITALS: RESP 14
[2022-06-09] MEDS: HYDROmorphone 1 mg/mL INJ 1 mL 0.5 MG IVP (15:18)
[2022-06-09 15:22] VITALS: BP 111/68; PULSE 82; RESP 14; O2SAT 98
[2022-06-09] MEDS: diphenhydrAMINE 50 mg/mL SDV 1mL 25 MG IVP (16:05)
[2022-06-09] MEDS: cefTRIAXone 1,000 MG in sodium chloride 0.9% (plus) 50 ML 100 MG IV (16:38)
[2022-06-09 16:59] VITALS: BP 122/83; PULSE 84; RESP 14; O2SAT 98
== END 2022-06-09 17:02 | disposition home or self-care (01) ==
PROVIDERS: Emergency Provider Family Medicine; PCP Internal Medicine
DX: N12 Tubulo-interstitial nephritis, not specified as acute or chronic (principal)
CPT/HCPCS: 36415; 74018; 74176; 80053; 81001; 83690; 84703; 85025; 87040; 87086; 96365; 96375; 96376; 99285; J0696; J1170; J1200; J2270; J7030

== ENCOUNTER 2022-09-19 14:19 | Outpatient (CLI) | payer OTHER, SELFPAY ==
[2022-09-19 14:50] LABS: Basophils # 0.1 10^3/uL (0.0-0.1); Basophils % 1.3 %; Eosinophils # 0.1 10^3/uL (0.0-0.8); Eosinophils % 1.5 %; Hematocrit 38.5 % (37.0-47.0); Hemoglobin 12.6 g/dL (11.5-15.3); Lymphocytes # 1.1 10^3/uL (0.8-4.8); Lymphocytes % 21.2 %; Mean Corpuscular HGB Conc 32.7 g/dL (30.0-36.0); Mean Corpuscular Hemoglobin 29.7 pg (28.0-34.0); Mean Corpuscular Volume 90.8 fl (81-99); Mean Platelet Volume 9.3 fL (7.4-10.4); Monocytes # 0.5 10^3/uL (0.2-0.9); Monocytes % 10.2 %; Neutrophils % 65.6 %; Nucleated Red Blood Cells % 0 %; Platelet Count 231 10^3/cmm (130-400); Red Blood Count 4.24 10^6/uL (4.1-5.3); Red Cell Distribution Width 13.1 % (12.1-15.1); White Blood Count 5.2 10^3/uL (4.0-10.0)
[2022-09-19 15:01] LABS: Erythrocyte Sedimentation Rate < 1 mm/hr (0-15)
[2022-09-19 15:12] LABS: Alanine Aminotransferase 13 U/L (0-33); Albumin Level 4.3 g/dL (3.5-5.2); Alkaline Phosphatase 47 U/L (35-105); Aspartate Amino Transferase 14 U/L (0-32); Glomerular Filtration Rate 77.9 mL/min (90-130); Total Bilirubin 0.2 mg/dL (0.15-1.2); Total Protein 6.3 g/dL (6.6-8.7)
[2022-09-19 15:20] LABS: Free T4 Free Thyroxine 1.36 ng/dL (0.82-1.77); Thyroid Stimulating Hormone 0.85 uIU/mL (0.27-4.20)
[2022-09-19 15:28] LABS: Hepatitis C Virus Antibody Non-Reactive (Nonreactive)
[2022-09-19 15:37] LABS: Hepatitis B Core AB, Total Non-Reactive (Nonreactive); Hepatitis B Surface Antigen Non-Reactive (Nonreactive)
[2022-09-20 12:35] LABS: Centromere B Antibody <1.0 NEG AI (<1.0 NEG); SCL 70 <1.0 NEG AI (<1.0 NEG)
[2022-09-20 13:38] LABS: 25 Hydroxy Vitamin D > 120 ng/mL (30-100)
[2022-09-20 14:36] LABS: Cyclic Citrullinated Peptide <16 UNITS
[2022-09-21 17:55] LABS: Quantiferon Mitogen >10.00 IU/mL; Quantiferon Nil 0.01 IU/mL; Quantiferon Plus TB1 0.01 IU/mL; Quantiferon Plus TB2 0.01 IU/mL; Quantiferon TB Gold NEGATIVE (NEGATIVE)
== END 2022-09-19 14:20 | disposition home or self-care (01) ==
LOC: LAB 14:23
PROVIDERS: PCP Internal Medicine; Referring Provider Internal Medicine; Visit Provider Internal Medicine Rheumatology
DX: Z79.899 Other long term (current) drug therapy (principal); E03.9 Hypothyroidism, unspecified; M19.90 Unspecified osteoarthritis, unspecified site; Z11.59 Encounter for screening for other viral diseases
CPT/HCPCS: 36415; 80076; 82306; 82565; 84439; 84443; 85025; 85651; 86140; 86200; 86235; 86480; 86704; 86803; 87340

== ENCOUNTER 2022-10-23 15:49 | Outpatient (CLI) | payer OTHER, SELFPAY ==
[2022-10-23 17:09] LABS: Estmated Average Glucose 94; Hemoglobin A1C 4.9 % (4.0-6.0)
== END 2022-10-23 15:50 | disposition home or self-care (01) ==
PROVIDERS: PCP Internal Medicine; Visit Provider Nurse Practitioner Family
DX: R73.9 Hyperglycemia, unspecified (principal)
CPT/HCPCS: 36415; 83036

== ENCOUNTER 2022-11-26 13:10 | Outpatient (CLI) | payer OTHER, SELFPAY ==
[2022-11-26 13:30] LABS: Basophils # 0.1 10^3/uL (0.0-0.1); Basophils % 0.6 %; Hematocrit 38.7 % (36-47); Lymphocytes # 1.6 10^3/uL (0.8-4.8); Lymphocytes % 14.1 %; Mean Corpuscular HGB Conc 33.1 g/dL (30-55); Mean Corpuscular Hemoglobin 30.5 pg (27-33); Mean Corpuscular Volume 92.1 fl (85-98); Mean Platelet Volume 8.9 fL (7.4-10.4); Monocytes # 0.9 10^3/uL (0.2-0.9); Monocytes % 8.4 %; Neutrophils # 8.58 10^3/uL (1.8-7.7); Neutrophils % 76.4 %; Nucleated Red Blood Cells % 0 %; Platelet Count 285 10^3/cmm (157-399); Red Cell Distribution Width 13.9 % (12.1-15.1); White Blood Count 11.24 10^3/uL (3.29-11.43)
[2022-11-26 13:56] LABS: Alanine Aminotransferase 17 U/L (0-33); Albumin Level 4.4 g/dL (3.5-5.2); Alkaline Phosphatase 56 U/L (35-105); Aspartate Amino Transferase 18 U/L (0-32); Globulin 2.8 g/dL (1.3-4.6); Glomerular Filtration Rate 77.9 mL/min (90-130); Total Bilirubin 0.6 mg/dL (0.15-1.2); Total Protein 7.2 g/dL (6.6-8.7)
[2022-11-26 14:11] LABS: 25 Hydroxy Vitamin D 69 ng/mL (30-100)
== END 2022-11-26 13:11 | disposition home or self-care (01) ==
LOC: LAB 13:14
PROVIDERS: PCP Internal Medicine; Visit Provider Internal Medicine Rheumatology
DX: M05.79 Rheumatoid arthritis with rheumatoid factor of multiple sites without organ or systems involvement (principal); Z79.899 Other long term (current) drug therapy
CPT/HCPCS: 36415; 80076; 82306; 82565; 85025; 86140

== ENCOUNTER 2023-02-20 14:47 | Outpatient (CLI) | payer OTHER, SELFPAY ==
--- NOTE | 2023-02-20 14:54 | MM_ITS ---
WS: [id number] BILATERAL 3D TOMOSYNTHESIS DIGITAL SCREENING MAMMOGRAPHY WITH CAD CLINICAL INFORMATION: SCREEN HISTORY: Screening mammogram. Previous benign RIGHT breast biopsies COMPARISON: 2021 TECHNIQUE: Bilateral CC and MLO views. FINDINGS: Scattered fibroglandular densities bilaterally. No suspicious focal mass, asymmetry, calcifications, or architectural distortion. No evidence of malignancy. Stable ovoid nodules RIGHT breast. A few inci dental punctate calcifications. Biopsy clips RIGHT breast with stable ovoid nodules. IMPRESSION: MM/[place] [id number] BI-RADS: 2-Benign FOLLOW UP: 1 Year Follow-up Recommend return to annual screening mammography.
== END 2023-02-20 14:48 | disposition home or self-care (01) ==
LOC: RAD 14:47
PROVIDERS: PCP Internal Medicine; Visit Provider Internal Medicine
DX: Z12.31 Encounter for screening mammogram for malignant neoplasm of breast (principal)
CPT/HCPCS: 77063; 77067

== ENCOUNTER 2023-04-15 07:30 | Outpatient (CLI) | payer OTHER, SELFPAY ==
[2023-04-15 07:44] LABS: Basophils # 0.1 10^3/uL (0.0-0.1); Basophils % 0.7 %; Eosinophils # 0.1 10^3/uL (0.0-0.8); Eosinophils % 0.8 %; Hematocrit 38.9 % (36-47); Lymphocytes % 26.2 %; Mean Corpuscular HGB Conc 33.2 g/dL (30-55); Mean Corpuscular Hemoglobin 31.5 pg (27-33); Mean Corpuscular Volume 94.9 fl (85-98); Mean Platelet Volume 8.8 fL (7.4-10.4); Monocytes % 8.3 %; Neutrophils # 7.33 10^3/uL (1.8-7.7); Neutrophils % 63.7 %; Nucleated Red Blood Cells % 0 %; Platelet Count 304 10^3/cmm (157-399); White Blood Count 11.52 10^3/uL (3.29-11.43)
[2023-04-15 08:07] LABS: Alanine Aminotransferase 17 U/L (0-33); Albumin Level 4.3 g/dL (3.5-5.2); Alkaline Phosphatase 46 U/L (35-105); Aspartate Amino Transferase 19 U/L (0-32); Globulin 2.7 g/dL (1.3-4.6); Glomerular Filtration Rate 90.5 mL/min (90-130); Total Bilirubin 0.3 mg/dL (0.15-1.2)
== END 2023-04-15 07:31 | disposition home or self-care (01) ==
LOC: LAB 07:32
PROVIDERS: PCP Internal Medicine; Visit Provider Internal Medicine Rheumatology
DX: M05.79 Rheumatoid arthritis with rheumatoid factor of multiple sites without organ or systems involvement (principal); Z79.899 Other long term (current) drug therapy
CPT/HCPCS: 36415; 80076; 82565; 85025; 86140

== ENCOUNTER 2023-06-21 09:47 | Outpatient (CLI) | payer OTHER, SELFPAY ==
[2023-06-21 12:20] LABS: Free T4 Free Thyroxine 1.58 ng/dL (0.82-1.77); Thyroid Stimulating Hormone 0.23 uIU/mL (0.27-4.20)
[2023-06-24 07:51] LABS: Thyroglobulin AB <1 IU/mL (< or = 1)
[2023-06-24 12:34] LABS: Thyroid Peroxidase Antobodies 47 IU/mL (<9)
[2023-07-03 04:09] LABS: TSH Receptor Binding Antibody 1.68 IU/L (< OR = 2.00)
== END 2023-06-21 09:48 | disposition home or self-care (01) ==
LOC: LAB 09:49
PROVIDERS: PCP Internal Medicine; Visit Provider Internal Medicine
DX: E03.9 Hypothyroidism, unspecified (principal)
CPT/HCPCS: 36415; 83516; 84439; 84443; 86376; 86800

== ENCOUNTER → 2023-07-03 13:39 | Outpatient (BNVA) | payer OTHER, SELFPAY | PROVIDERS: PCP Internal Medicine; Visit Provider Internal Medicine Rheumatology | DX: Z79.899 Other long term (current) drug therapy (principal); M05.79 Rheumatoid arthritis with rheumatoid factor of multiple sites without organ or systems involvement; Z71.85 Encounter for immunization safety counseling; G56.01 Carpal tunnel syndrome, right upper limb; M77.11 Lateral epicondylitis, right elbow; R76.8 Other specified abnormal immunological findings in serum | CPT/HCPCS: 36415; 80076; 82565; 85025; 86140 ==

== ENCOUNTER 2023-09-19 06:47 | Outpatient (CLI) | payer OTHER, SELFPAY ==
[2023-09-19 07:39] LABS: Free T4 Free Thyroxine 1.13 ng/dL (0.82-1.77); Thyroid Stimulating Hormone 1.67 uIU/mL (0.27-4.20)
[2023-09-20 10:21] LABS: T3 Total 78 ng/dL (76-181)
== END 2023-09-19 06:48 | disposition home or self-care (01) ==
PROVIDERS: PCP Internal Medicine; Visit Provider Internal Medicine
DX: E03.9 Hypothyroidism, unspecified (principal)
CPT/HCPCS: 84439; 84443; 84480

== ENCOUNTER 2023-12-06 08:38 | Outpatient (CLI) | payer OTHER, SELFPAY ==
[2023-12-06 08:54] LABS: Basophils # 0.1 10^3/uL (0.0-0.1); Basophils % 0.8 %; Eosinophils # 0.1 10^3/uL (0.0-0.8); Eosinophils % 1.1 %; Hematocrit 36.5 % (36-47); Lymphocytes % 27.8 %; Mean Corpuscular HGB Conc 33.4 g/dL (30-55); Mean Corpuscular Hemoglobin 31.8 pg (27-33); Mean Corpuscular Volume 95.1 fl (85-98); Mean Platelet Volume 9.2 fL (7.4-10.4); Monocytes # 0.7 10^3/uL (0.2-0.9); Monocytes % 9.4 %; Neutrophils # 4.39 10^3/uL (1.8-7.7); Neutrophils % 60.8 %; Nucleated Red Blood Cells % 0 %; Platelet Count 267 10^3/cmm (157-399); Red Blood Count 3.84 10^6/uL (3.85-5.65); Red Cell Distribution Width 13.4 % (12.1-15.1); White Blood Count 7.23 10^3/uL (3.29-11.43)
[2023-12-06 08:58] LABS: Erythrocyte Sedimentation Rate 2 mm/hr (0-15)
[2023-12-06 09:32] LABS: Alanine Aminotransferase 13 U/L (0-33); Albumin Level 4.3 g/dL (3.5-5.2); Alkaline Phosphatase 46 U/L (35-105); Anion Gap 14.9 (5-19); Aspartate Amino Transferase 17 U/L (0-32); Blood Urea Nitrogen 7 mg/dL (6-20); Calcium 8.6 mg/dL (8.5-10.5); Carbon Dioxide 24 mmol/L (22-29); Chloride 101 mmol/L (98-107); Chol HDL Ratio 2.54 mg/dL (0.0-4.40); Cholesterol 122 mg/dL (0-200); Globulin 2.3 g/dL (1.3-4.6); Glomerular Filtration Rate 90.1 mL/min (90-130); Glucose 89 mg/dL (65-115); HDL Cholesterol 48 mg/dL (60-100); LDL Cholesterol Calculated 55 mg/dL (50-129); LDL HDL Ratio 1.15 RATIO (0.00-3.22); Osmolality Calculated 279 mOsm/kg (285-295); Potassium 3.9 mmol/L (3.5-5.1); Sodium 136 mmol/L (136-145); Total Bilirubin 0.7 mg/dL (0.15-1.2); Total Protein 6.6 g/dL (6.6-8.7); Triglycerides 95 mg/dL (0-150)
[2023-12-06 09:44] LABS: Alanine Aminotransferase 12 U/L (0-33); Albumin Level 4.3 g/dL (3.5-5.2); Alkaline Phosphatase 47 U/L (35-105); Aspartate Amino Transferase 18 U/L (0-32); Globulin 2.5 g/dL (1.3-4.6); Glomerular Filtration Rate 90.1 mL/min (90-130); Thyroid Stimulating Hormone 0.22 uIU/mL (0.27-4.20); Total Bilirubin 0.6 mg/dL (0.15-1.2); Total Protein 6.8 g/dL (6.6-8.7)
[2023-12-06 10:07] LABS: Free T4 Free Thyroxine 1.34 ng/dL (0.82-1.77)
[2023-12-07 10:36] LABS: T3 Total 109 ng/dL (76-181)
== END 2023-12-06 08:39 | disposition home or self-care (01) ==
LOC: LAB 08:40
PROVIDERS: Internal Medicine; PCP Internal Medicine; Visit Provider Internal Medicine Rheumatology
DX: Z79.899 Other long term (current) drug therapy (principal); M05.79 Rheumatoid arthritis with rheumatoid factor of multiple sites without organ or systems involvement; E03.9 Hypothyroidism, unspecified; Z13.220 Encounter for screening for lipoid disorders
CPT/HCPCS: 36415; 80053; 80061; 80076; 82565; 84439; 84443; 84480; 85025; 85651; 86140

== ENCOUNTER 2024-02-07 13:06 | Outpatient (CLI) | payer OTHER, SELFPAY ==
[2024-02-07 15:32] LABS: Free T4 Free Thyroxine 0.85 ng/dL (0.82-1.77); Thyroid Stimulating Hormone 0.65 uIU/mL (0.27-4.20)
[2024-02-08 10:10] LABS: T3 Total 91 ng/dL (76-181)
== END 2024-02-07 13:07 | disposition home or self-care (01) ==
LOC: LAB 13:07
PROVIDERS: PCP Internal Medicine; Visit Provider Internal Medicine
DX: E03.9 Hypothyroidism, unspecified (principal)
CPT/HCPCS: 36415; 84439; 84443; 84480

== ENCOUNTER 2024-07-01 13:47 | Outpatient (CLI) | payer OTHER, SELFPAY ==
--- NOTE | 2024-07-01 13:52 | MM_ITS ---
WS: [id number] BILATERAL 3D TOMOSYNTHESIS DIGITAL SCREENING MAMMOGRAPHY WITH CAD CLINICAL INFORMATION: SCREEN HISTORY: Screening mammogram. No current complaints. History of breast reduction COMPARISON: 2022 TECHNIQUE: Bilateral CC and MLO views. FINDINGS: Scattered fibroglandular densities bilaterally. No suspicious focal mass, asymmetry, calcifications, or architectural distortion. No evidence of malignancy. Stable ovoid nodule upper inner RIGHT breast with long-term stability. Stable calcified nodules RIGHT breast. Incidental benign calcifications. Stable biopsy clips RIGHT breast. MM/MM [facility] tomosynthesis [id number] IMPRESSION: DENSITY: There are scattered areas of fibroglandular density. BI-RADS: 2 - Benign. FOLLOW UP: 1 Year Follow-up Recommend return to annual screening mammography.
== END 2024-07-01 13:48 | disposition home or self-care (01) ==
PROVIDERS: PCP Internal Medicine; Visit Provider Internal Medicine
DX: Z12.31 Encounter for screening mammogram for malignant neoplasm of breast (principal); R92.323 Mammographic fibroglandular density, bilateral breasts; N64.89 Other specified disorders of breast; R92.1 Mammographic calcification found on diagnostic imaging of breast
CPT/HCPCS: 77063; 77067

== ENCOUNTER 2024-07-13 13:27 | Outpatient (CLI) | payer OTHER, SELFPAY ==
[2024-07-13 14:03] LABS: Basophils # 0.1 10^3/uL (0.0-0.1); Basophils % 0.8 %; Eosinophils # 0.1 10^3/uL (0.0-0.8); Eosinophils % 0.8 %; Erythrocyte Sedimentation Rate < 1 mm/hr (0-15); Hematocrit 35.6 % (36-47); Lymphocytes # 1.6 10^3/uL (0.8-4.8); Lymphocytes % 16.1 %; Mean Corpuscular HGB Conc 32.3 g/dL (30-55); Mean Corpuscular Hemoglobin 31.9 pg (27-33); Mean Corpuscular Volume 98.6 fl (85-98); Mean Platelet Volume 9.8 fL (7.4-10.4); Monocytes # 0.4 10^3/uL (0.2-0.9); Monocytes % 4.1 %; Neutrophils # 7.72 10^3/uL (1.8-7.7); Neutrophils % 77.9 %; Nucleated Red Blood Cells % 0 %; Platelet Count 257 10^3/cmm (157-399); Red Blood Count 3.61 10^6/uL (3.85-5.65); Red Cell Distribution Width 14.1 % (12.1-15.1); White Blood Count 9.92 10^3/uL (3.29-11.43)
[2024-07-13 14:36] LABS: Alanine Aminotransferase 31 U/L (0-33); Albumin Level 4.2 g/dL (3.5-5.2); Alkaline Phosphatase 60 U/L (35-105); Aspartate Amino Transferase 27 U/L (0-32); Globulin 2.4 g/dL (1.3-4.6); Glomerular Filtration Rate 107.6 mL/min (90-130); Thyroid Stimulating Hormone 0.98 uIU/mL (0.27-4.20); Total Bilirubin 0.4 mg/dL (0.15-1.2); Total Protein 6.6 g/dL (6.6-8.7)
[2024-07-13 15:34] LABS: Free T4 Free Thyroxine 0.95 ng/dL (0.82-1.77)
== END 2024-07-13 13:28 | disposition home or self-care (01) ==
PROVIDERS: PCP Internal Medicine; Referring Provider Internal Medicine; Visit Provider Internal Medicine Rheumatology
DX: M05.79 Rheumatoid arthritis with rheumatoid factor of multiple sites without organ or systems involvement (principal); Z79.899 Other long term (current) drug therapy; E03.9 Hypothyroidism, unspecified
CPT/HCPCS: 36415; 80076; 82565; 84439; 84443; 85025; 85651; 86140

== ENCOUNTER 2024-09-16 13:25 | Outpatient (CLI) | payer OTHER, SELFPAY | END 2024-09-16 13:26 | disposition home or self-care (01) | LOC: LAB 13:26 | PROVIDERS: PCP Internal Medicine; Visit Provider Internal Medicine Rheumatology | DX: Z79.899 Other long term (current) drug therapy (principal) | CPT/HCPCS: 36415; 86480 ==

== ENCOUNTER 2024-10-01 12:27 | Outpatient (CLI) | payer OTHER, SELFPAY ==
[2024-10-01 13:45] LABS: Free T4 Free Thyroxine 0.89 ng/dL (0.82-1.77); Thyroid Stimulating Hormone 0.19 uIU/mL (0.27-4.20)
== END 2024-10-01 12:28 | disposition home or self-care (01) ==
PROVIDERS: PCP Internal Medicine; Visit Provider Internal Medicine
DX: F32.9 Major depressive disorder, single episode, unspecified (principal); E03.9 Hypothyroidism, unspecified
CPT/HCPCS: 36415; 84439; 84443; 84480

== ENCOUNTER 2024-11-23 07:36 | Outpatient (CLI) | payer OTHER, SELFPAY ==
[2024-11-23 08:01] LABS: Hematocrit 37.4 % (36-47); Hemoglobin 12.20 g/dL (11.27-16.99); Mean Corpuscular HGB Conc 32.6 g/dL (30-55); Mean Corpuscular Hemoglobin 31.2 pg (27-33); Mean Corpuscular Volume 95.7 fl (85-98); Nucleated Red Blood Cells % 0 %; Platelet Count 260 10^3/cmm (157-399); Red Blood Count 3.91 10^6/uL (3.85-5.65); White Blood Count 6.08 10^3/uL (3.29-11.43)
[2024-11-23 08:40] LABS: Alanine Aminotransferase 13 U/L (0-33); Albumin Level 3.8 g/dL (3.5-5.2); Alkaline Phosphatase 39 U/L (35-105); Aspartate Amino Transferase 16 U/L (0-32); Globulin 2.4 g/dL (1.3-4.6); Total Protein 6.2 g/dL (6.6-8.7)
== END 2024-11-23 07:37 | disposition home or self-care (01) ==
PROVIDERS: PCP Internal Medicine; Visit Provider Internal Medicine Rheumatology
DX: Z79.899 Other long term (current) drug therapy (principal)
CPT/HCPCS: 36415; 80076; 82565; 84439; 84443; 85025; 85651; 86140

== ENCOUNTER 2024-12-28 08:20 | Outpatient (CLI) | payer OTHER, SELFPAY | END 2024-12-28 08:21 | disposition home or self-care (01) | LOC: LAB 08:20 | PROVIDERS: PCP Internal Medicine; Visit Provider Internal Medicine | DX: E03.9 Hypothyroidism, unspecified (principal) | CPT/HCPCS: 36415; 84480 ==

== ENCOUNTER 2025-02-16 14:13 | Outpatient (CLI) | payer OTHER, SELFPAY ==
[2025-02-16 15:09] LABS: Hematocrit 37.2 % (36-47); Hemoglobin 12.60 g/dL (11.27-16.99); Mean Corpuscular HGB Conc 33.9 g/dL (30-55); Mean Corpuscular Hemoglobin 32.6 pg (27-33); Mean Corpuscular Volume 96.1 fl (85-98); Nucleated Red Blood Cells % 0 %; Platelet Count 254 10^3/cmm (157-399); Red Blood Count 3.87 10^6/uL (3.85-5.65); White Blood Count 6.72 10^3/uL (3.29-11.43)
[2025-02-16 15:42] LABS: Alanine Aminotransferase 16 U/L (0-33); Albumin Level 4.5 g/dL (3.5-5.2); Alkaline Phosphatase 51 U/L (35-105); Aspartate Amino Transferase 20 U/L (0-32); Globulin 2.5 g/dL (1.3-4.6); Total Protein 7.0 g/dL (6.6-8.7)
== END 2025-02-16 14:14 | disposition home or self-care (01) ==
LOC: LAB 14:15
PROVIDERS: PCP Internal Medicine; Visit Provider Internal Medicine Rheumatology
DX: Z79.899 Other long term (current) drug therapy (principal); M05.79 Rheumatoid arthritis with rheumatoid factor of multiple sites without organ or systems involvement; M81.0 Age-related osteoporosis without current pathological fracture
CPT/HCPCS: 36415; 80076; 82306; 82565; 85025; 85651; 86140

== ENCOUNTER → 2025-02-24 09:24 | Outpatient (BNVA) | payer OTHER, SELFPAY | PROVIDERS: PCP Internal Medicine; Visit Provider Internal Medicine Endocrinology, Diabetes & Metabolism | DX: E03.9 Hypothyroidism, unspecified (principal) | CPT/HCPCS: 84439; 84443 ==